=== PATIENT | male | born 1940 | race Caucasian/White ===

== ENCOUNTER 2018-07-19 20:59 | Emergency (ER) | payer MEDICARE, BC ==
[2018-07-19] MEDS ORDERED: diphenhydrAMINE 25 MG Cap PO ONE (21:28)
--- NOTE | 2018-07-19 21:28 | EDM.PDOC ---
ED HPI GENERAL MEDICAL PROBLEM - General Chief Complaint: Bite:Animal, Insect Stated Complaint: TICK BITE Time Seen by Provider: 07/19/18 21:10 Source of Information: Reports: Patient History Limitations: Reports: No Limitations - History of Present Illness INITIAL COMMENTS - FREE TEXT/NARRATIVE: Patient reports having ear irritation for the last two days. Last night noted a tick crawling down his face. Noted the tick was not swollen as if full of blood. Right ear. Ear is red and swollen but does state he is hypersensitive to other types of bites including mosquito bites. He does get red and swollen from them as well. He denies fever, chills, rash, aches, pains. No other symptoms. Onset: Gradual Duration: Intermittent Severity: Mild Right Ear Pain Score (Numeric/FACES): 1 - Related Data Allergies Allergy/AdvReac Type Severity Reaction Status Date / Time No Known Allergies Allergy Verified 07/19/18 21:14 Home Meds: Home Meds Omeprazole 20 mg PO DAILY 07/19/18 [History] ED ROS GENERAL - Review of Systems Review Of Systems: See Below Constitutional: Reports: No Symptoms HEENT: Reports: No Symptoms Respiratory: Reports: No Symptoms Cardiovascular: Reports: No Symptoms Endocrine: Reports: No Symptoms GI/Abdominal: Reports: No Symptoms : Reports: No Symptoms Musculoskeletal: Reports: No Symptoms Skin: Reports: Erythema, Urticaria (right ear auricle) Neurological: Reports: No Symptoms Psychiatric: Reports: No Symptoms Hematologic/Lymphatic: Reports: No Symptoms ED EXAM, ANIMAL BITE - Physical Exam Exam: See Below Exam Limited By: No Limitations General Appearance: Alert, WD/WN, No Apparent Distress Eye Exam: Bilateral Eye: Normal Inspection, PERRL Ears: Normal TMs, Other (right upper helix of the ear is swollen, erythematous and this continues into the tragus) Head: Facial Swelling (near right ear tragus) Neck: Normal Inspection, Supple, Non-Tender, Full Range of Motion Respiratory/Chest: No Respiratory Distress, Lungs Clear, Normal Breath Sounds, No Accessory Muscle Use, Chest Non-Tender Cardiovascular: Normal Peripheral Pulses, Regular Rate, Rhythm, No Edema, No Gallop, No JVD, No Murmur, No Rub Course - Vital Signs Last Recorded V/S: Last Vital Signs Temp 36.8 C 07/19/18 21:20 Pulse 55 L 07/19/18 21:20 Resp 14 07/19/18 21:20 BP 128/63 07/19/18 21:20 Pulse Ox 96 07/19/18 21:20 Departure - Departure Time of Disposition: 21:51 Disposition: Home, Self-Care 01 Condition: Good Clinical Impression: Tick bite of ear - Discharge Information *PRESCRIPTION DRUG MONITORING PROGRAM REVIEWED*: Not Applicable *COPY OF PRESCRIPTION DRUG MONITORING REPORT IN PATIENT ASHANTI: Not Applicable Instructions: Tick Bite Information, Adult, [id number], [place] Spotted Fever Referrals: Young Maradiaga MD [Primary Care Provider] - Additional Instructions: Plan 1. Follow up with primary care as needed for symptom management 2. Make sure to wear appropriate clothing when in areas where ticks may be more prevalent 3. Most tick borne illnesses will present in 1-2 weeks. 4. Take benadryl 25 mg up to 4 times per day as needed for the swelling. You may become drowsy by taking the benadryl Do not drive. 5. Leave the ear alone. 6. Please call the emergency department if you have any additional questions or concerns - Problem List & Annotations (1) Tick bite of ear SNOMED Code(s): 19473790 Code(s): S00.469A - INSECT BITE (NONVENOMOUS) OF UNSPECIFIED EAR, INIT ENCNTR ; W57.XXXA - BIT/STUNG BY NONVENOM INSECT & OTH NONVENOM ARTHROPODS, INIT Status: Acute Priority: Low Current Visit: Yes Qualifiers: Encounter type: initial encounter Laterality: right Qualified Code(s): S00.461A - Insect bite (nonvenomous) of right ear, initial encounter; W57.XXXA - Bitten or stung by nonvenomous insect and other nonvenomous arthropods, initial encounter - Problem List Review Problem List Initiated/Reviewed/Updated: Yes - Assessment/Plan Assessment:: tick bite of right ear Plan: Plan 1. Follow up with primary care as needed for symptom management 2. Make sure to wear appropriate clothing when in areas where ticks may be more prevalent 3. Most tick borne illnesses will present in 1-2 weeks. 4. Take benadryl 25 mg up to 4 times per day as needed for the swelling. You may become drowsy by taking the benadryl Do not drive. 5. Leave the ear alone. 6. Please call the emergency department if you have any additional questions or concerns
== END 2018-07-19 21:40 | disposition home or self-care (01) ==
LOC: VM.ED 20:59 → SUPCPDRO 20:59 → VM.ED 21:40
DX: S00.461A Insect bite (nonvenomous) of right ear, initial encounter (principal); W57.XXXA Bitten or stung by nonvenomous insect and other nonvenomous arthropods, initial encounter; Z79.899 Other long term (current) drug therapy
CPT/HCPCS: 99283; A9270